=== PATIENT | male | born 1935 | race Caucasian/White ===

== ENCOUNTER 2017-04-03 02:11 | Observation (INO) | payer MEDICARE, OTHER ==
[2017-04-03] VITALS (14 sets, daily range): BP systolic 103–178; BP diastolic 46–86; PULSE 54–81; RESP 14–20; O2SAT 93–99
[~2017-04-03] VITALS: Ht 172.7 cm; Wt 105.2 kg
[~2017-04-03 02:11] MED LIST: LEVO112T3 PO; MECL-114 PO; PENI500T PO
--- NOTE | 2017-04-03 02:29 | ED.REPORT ---
HPI-GI Bleed Date of Service Apr 03, 2017 ED Provider: Dr. Coy 81 y/o male on Aspirin and with a hx of hypothyroidism presents to the ED complaining of melena, onset 4 days ago. Associated sx include epigastric pain and several vomiting episodes 4 days ago. He has not vomited since. He denies alcohol use, dysuria and hematemesis. The pt takes Aleve everyday for arthritic pain.. Nursing Notes Stated Complaint: BLACK STOOL Chief Complaint: Male Abdominal Pain Nursing Notes Reviewed: Yes Allergies: Coded Allergies: No Known Allergies (Unverified Allergy, Unknown, 04/03/17) Scheduled Levothyroxine (Synthroid) 112 Mcg Tablet 112 MCG PO DAILY General Time Seen by Provider: 03:00 Chief Complaint Chief Complaint: Other (Melena) Hx Obtained From: Patient Arrived By: Walk-in Onset Occurred: 4 days ago Symptom Duration: Since onset Progression Since Onset: Unchanged Location: : Epigastric Quality: Painful Radiation: : Does not radiate Severity: Current: Mild Severity: Maximum: Mild Recent Healthcare: No recent doctor visit Similar Sx Previous: No Past Medical History Past Medical History Notes: PCP: Dr. Montero Past Medical History Hypothyroid Past Surgical History ankle replacement Biceps tendon jaw surgery dental extraction Reports: Appendectomy Smoking History Never Smoker Social History Alcohol Use: "Social" Other Social History: Ambulatory Status Independent Review of Systems GI: Reports: Abdominal pain, Melena, Vomiting (now resolved), Denies: Hematemesis Complete sys rev & neg: except as marked. Male: Denies Dysuria Physical Exam Initial Vital Signs Vital Signs (First) Date Time Temp Pulse Resp B/P Pulse Ox O2 Delivery O2 Flow Rate FiO2 04/03/17 02:18 36.9 81 20 178/69 96 Room Air Initial VS: Reviewed Head / Eyes: Atraumatic, Normocephalic Neck: Supple, Non-tender, Full range of motion Extremities: Vascular intact, Neuro intact, No swelling, No tenderness Skin: Warm, Dry, No cyanosis Neurologic: Alert, Oriented, Nonfocal General/Constitutional: Awake, Alert, No acute distress, Cooperative Respiratory / Chest: Atraumatic, Breath sounds NL, Breath sounds = bilat, No respiratory distress, No rales, No rhonchi, No wheezing Cardiovascular: Heart rate NL, Regular rhythm, Heart sounds NL, No gallop, No murmurs, No rubs Abdomen: Atraumatic, Soft, Non-tender, No guarding, No rebound Interpretation & Diagnostics Lab Results Interpretation Result Diagram: 04/03/17 0240 04/03/17 0240 Test 04/03/17 02:40 White Blood Count 7.8th/mm3 (3.8-10.1) Red Blood Count 4.79mil/mm3 (4.40-5.80) Hemoglobin 15.0g/dL (13.8-17.2) Hematocrit 43.9% (41.0-50.0) Mean Corpuscular Volume 91.6fL (81-100) Mean Corpuscular Hemoglobin 31.3pg (27.0-35.0) Mean Corpuscular Hemoglobin Concent 34.2% (32.0-37.0) Red Cell Distribution Width 13.1% (12.3-15.4) Platelet Count 203bil/L (150-400) Neutrophils (%) (Auto) 59.2% (40-74) Lymphocytes (%) (Auto) 27.2% (14-46) Monocytes (%) (Auto) 12.3% (4-12) Eosinophils (%) (Auto) 0.9% (0-5) Basophils (%) (Auto) 0.3% (0-3) Prothrombin Time 10.0sec (8.1-12.5) Prothromb Time International Ratio 0.94ratio Activated Partial Thromboplast Time 28.1sec (22.8-33.0) Sodium Level 137mEq/L (134-144) Potassium Level 4.0mEq/L (3.5-5.2) Chloride Level 101mEq/L (97-108) Carbon Dioxide Level 22mmol/L (18-29) Blood Urea Nitrogen 21mg/dL (8-27) Creatinine 0.93mg/dL (0.76-1.27) Estimat Glomerular Filtration Rate 83mL/min (>59) Glucose Level 102mg/dL (60-99) Calcium Level 8.1mg/dL (8.5-10.1) Magnesium Level 2.2mg/dL (1.6-2.6) Total Bilirubin 0.3mg/dL (0.0-1.2) Aspartate Amino Transf (AST/SGOT) 21U/L (0-50) Alanine Aminotransferase (ALT/SGPT) 17U/L (0-44) Alkaline Phosphatase 74U/L (25-160) Total Protein 6.7g/dL (6.4-8.4) Albumin 3.5g/dL (3.4-5.0) Lipase 25U/L (13-60) Hold Islas Top Tube Received (Received) Re-Eval/Medical Decision Med Decision/Clinical Course 81-year-old with a several day prodrome of upper GI discomfort, presents now with melanotic stool. Hemoglobin is adequate. Coags are negative. Begun with Protonix and admitted now for GI evaluation. Re-Evaluation/Progress : Time of Eval: 03:04 Re-Evaluation/Progress Note: Discussed lab results, diagnosis and plan to admit. Pt understands and agrees with the plan for admission. All questions addressed. Consultation : Referral / Consult Name: Carmelo Kelly MD Consulted With: Hospitalist Call Returned at: 03:38 Candle Molder Machine: Will see patient, Agrees with eval, Agrees with plan, Accepts admit Counseled Regarding: Diagnosis, Lab results, Need for admission Discharge & Departure Impression: Primary Impression: Upper gastrointestinal bleed Additional Impression: Melena Disposition: ADMITTED TO HOSPITAL Discharge Condition All VS Reviewed: Yes Referrals: Linnea Carias MD (PCP) Scribe Attestation Portions of this note were transcribed by Kp Mccarthy. I,, personally performed the history, physical exam and medical decision-making;I reviewed and confirmed the accuracy of the information in the transcribed note. Signed by Balaji Mohan. 04/03/17 copies to: Linnea Carias MD, Christopher W MD Apr 03, 2017 02:29 Kp Mccarthy Apr 03, 2017 03:07
[2017-04-03 02:53] LABS: BASOPHILS % (AUTO) 0.3 % (0-3); EOSINOPHILS % (AUTO) 0.9 % (0-5); MONOCYTES % (AUTO) 12.3 % (4-12); Mean Corpuscular Hemoglobin 31.3 pg (27.0-35.0); Mean Corpuscular Volume 91.6 fL (81-100); NEUTROPHILS % (AUTO) 59.2 % (40-74); Platelet Count 203 bil/L (150-400)
[2017-04-03 03:05] LABS: INR 0.94 ratio
[2017-04-03 03:14] LABS: Magnesium 2.2 mg/dL (1.6-2.6)
[2017-04-03] MEDS ORDERED: Pantoprazole 4 mg/mL 10 mL Inj IVPUSH ONE (04:05)
[2017-04-03] MEDS ORDERED: Polyethylene Glycol (PEG) 17 Gm Powder PO PRN (04:05)
[2017-04-03] MEDS ORDERED: Alum-Mag Hydrox-Simeth 30 mL Suspension PO PRN (04:05)
[2017-04-03] MEDS ORDERED: 0.9% Sodium Chloride 1,000 ML IV SCH (04:05)
[2017-04-03] MEDS ORDERED: Ondansetron 2 mg/mL 2 mL Inj IVPUSH PRN (04:05)
--- NOTE | 2017-04-03 04:16 | PCM.HPMED ---
Subjective Date of Service Apr 03, 2017 Primary Provider: Admitting Physician: Primary Care Physician: Radha Verdugo MD Attending Physician: Chief Complaint: Maroon stools History of Present Illness: Nabor Kennedy is a 81 year old man with past medical history significant for hypothyroidism who presented to the [facility] emergency department today due to complaints of melena which started yesterday. Patient denies any prior episodes of gastrointestinal bleeding. Patient denies any hematochezia, hematemesis. He denies any fevers or chills. He did notice nausea and has had several episodes of vomiting one of which was projectile. He denies any coffee- ground emesis. He also notes some mild intermittent epigastric abdominal pain that feels like a "cramp" and his has noticed an increased abdominal girth and states that he appears bloated. Patient has been taking Aleve routinely due to his prosthetic ankle and chronic ankle pain. Over the last couple days he is taken about 4 pills per day. Patient also takes aspirin daily. Patient has had prior colonoscopies for screening purposes which she reports showed only polyps. He has never had an EGD. In the emergency department the patient's vital signs were stable. The on-call business area manager was consulted by the emergency physician and has kindly agreed to see the patient the morning for possible EGD. Review of Systems: A comprehensive review of systems was conducted with the patient and found to be negative except as above in the History of Present Illness. Allergies Coded Allergies: No Known Allergies (Unverified Allergy, Unknown, 04/03/17) Home Medications Levothyroxine (Synthroid) 112 Mcg Tablet 112 MCG PO DAILY Aspirin 81 mg daily PMH Hypothyroidism Chronic vertigo Surgical History Ankle replacement Jaw surgery Dental extraction Appendectomy Family History She denies any family history of gastrointestinal bleeding, colon cancer, esophageal cancer. Social History Hx Alcohol Use: Yes (socially) Hx Substance Use: No Hx Tobacco Use: No Smoking Status: Never Smoker Exam Vital Signs Vital Sign - Last Date Time Temp Pulse Resp B/P Pulse Ox O2 Delivery O2 Flow Rate FiO2 04/03/17 02:18 36.9 81 20 178/69 96 Room Air Exam General: No acute distress, obese man sitting comfortably in hospital bed appropriately interactive HEENT: Normocephalic, atraumatic. External ears without defect. Pupils equal, round, and reactive to light and accommodation. Anicteric sclerae, moist conjunctivae, and no lid lag. Oropharynx free of erythema and cobble stoning with moist mucosa. Neck: Supple with full range of motion. No jugular venous distension. No lymphadenopathy or thyromegaly. Cardiovascular: Regular rate and rhythm with no murmurs, rubs, or gallops appreciated. Heart sounds are distant due to body habitus. Pulmonary: Clear to auscultation bilaterally with no crackles, wheezes, or rhonchi. Normal respiratory effort with no use of accessory muscles. Abdomen: Bowel tones present. Soft, nontender, obese, tympanic on percussion. Appears mildly distended. No hepatosplenomegaly or masses appreciated. Extremities: No clubbing, cyanosis, edema, or lymphadenopathy appreciated. Surgical scars on the left ankle. Skin: Normal temperature, turgor, and texture; no rash, ulcers, or subcutaneous nodules appreciated. Neurological: Cranial nerves grossly intact. Normal muscle strength, tone, and bulk. No speech. No known gait impairment. Psychiatric: Normal mood and affect. Alert and oriented to person, place, and time. Lab and Diagnostics Result Diagram: 04/03/1723904/03/17239 Assessment & Plan Nabor Kennedy is a 81 year old man with past medical history significant for hypothyroidism who presented to the [facility] emergency department today due to complaints of melena which started yesterday. Acute Gastrointestinal bleed likely upper, present on admission, active -Likely secondary to NSAID use and aspirin use however differential includes H. pylori -Patient will be nothing by mouth -H&H is stable we will continue to monitor and transfuse if hemoglobin is less than 7 -Gastroenterology has been consulted and has kindly agreed to see the patient. We appreciate their time and expertise. -As patient appears to be stable we will give twice a day pushes of Protonix rather than a drip at this time. Hypothyroidism, present on admission, active -Continue levothyroxine after patient is a longer nothing by mouth Obesity Elevated blood pressure -Uncertain if this is hypertension or simply due to stress and anxiety. Continue to monitor. Code Status: Full code Patient is admitted under inpatient status with expected length of stay greater than 2 midnights due to severity of presenting symptoms, risk of adverse event, and complexity of treatment plan. VTE Prophylaxis Indicated: Contraindicated Resuscitation Status: CPR: Attempt Resuscitation Attending Statement The patient was seen and examined together with Dr. Mccormack on 04/03 and I agree with the history, exam and plan as outlined in the note above. Maranda Mccormack DO Apr 03, 2017 03:42 Carmelo Kelly MD Apr 03, 2017 19:20
[2017-04-03 06:40] LABS: BASOPHILS % (AUTO) 0.1 % (0-3); EOSINOPHILS % (AUTO) 1.3 % (0-5); MONOCYTES % (AUTO) 13.7 % (4-12); Mean Corpuscular Hemoglobin 31.3 pg (27.0-35.0); NEUTROPHILS % (AUTO) 62.2 % (40-74); Platelet Count 192 bil/L (150-400)
[2017-04-03] MEDS ORDERED: Propofol 10,000 mCg/mL 20 mL Inj ONE (08:04)
[2017-04-03] MEDS ORDERED: Levothyroxine 100 mCg/5 mL Inj IV ONE (08:30)
[2017-04-03] MEDS ORDERED: SAW/1TAB2 PO (08:59)
--- NOTE | 2017-04-03 09:40 | PCM.CHPMED ---
Subjective Date of Service: Apr 03, 2017 Provider requesting consult: Maranda Mccormack DO Primary Physician: Admitting Physician: Carmelo Kelly MD Primary Care Physician: Radha Verdugo MD Attending Physician: Blake Callejas MD Chief Complaint: Chief Complaint: Black stool History of Present Illness: GASTROENTEROLOGY CONSULT NOTE Nabor Conley is a 81-year-old male with past medical history fairly unremarkable including only hypothyroidism who presents scheduled [facility] emergency Department overnight due to complaints of black stool that started Sunday night, 04/02/2017. Prior to this episode of black stool heis nausea and decreased appetite starting on Sunday. He attributed this to being out in the sun and doing physical labor and thought he might have some degree of heat exhaustion. The next morning, Sunday, he proceeded to do additional yardwork and felt unwell most the day. Again with nausea and later in the afternoon a single episode of projectile vomiting with no blood. Due to these symptoms he relaxed most of Sunday and had no subsequent episodes of vomiting although he did feel nauseous, decreased appetite, and began to have a gnawing pain in his epigastric region. The pain did not radiate and was not associated with shortness of breath, chest pain, or palpitations. Pain may have improved slightly with cream of wheat but patient is unclear. Sunday he attended a family outing and upon returning late in the evening he had an episode of black stool. He denies any hematochezia, diarrhea, or change in caliber of stool. At this point he attempted to go back to sleep but was worried because he had heard that dark stool could be a sign of cancer which precipitated his presentation to the ED. The patient has taken Aleve in the past. 10 years ago he took 2 tablets of Aleve daily for approximately 15 years. Over the last 10 years though he has only used it intermittently for his left shoulder pain and occasional aches and pain. Amounting to less than 4 uses per month. Only other recent medication change is that the patient has started taking saw palmetto to see if this may provide some relief to his frequent urination during the night. Patient does take a daily baby aspirin per his family doctor. Patient denies any recent fever, chills, night sweats, weight loss, previous episodes of melena or hematochezia, or other changes in bowel habits. He is up-to-date on his screening colonoscopies but never has had an EGD completed. Patient does note that he is a generally anxious person although there has been a significant recent increase in stressors. Patient has an occasional beer socially but not on a daily basis or to any excess. Review of Systems: Comprehensive review of systems was conducted with the patient and found to be negative except as noted above in HPI. PMH Past Medical History Hypothyroidism Surgical History Appendectomy Ankle replacement Jaw surgery Home Medications Levothyroxin Saw palmetto Allergies: Coded Allergies: No Known Allergies (Unverified Allergy, Unknown, 04/03/17) Family History Family History No family history of colon cancer, IBD, or celiac disease. Social History Hx Alcohol Use: Yes (Social drinking, infrequent)Hx Substance Use: NoHx Tobacco Use: No Smoking Status: Never Smoker Living Arrangement: with Family Exam Vital Signs Vital Sign - Last Date Time Temp Pulse Resp B/P Pulse Ox O2 Delivery O2 Flow Rate FiO2 04/03/17 08:34 36.6 67 18 159/86 96 Room Air General: Alert, Oriented X3, No Acute Distress Head: Normal Eyes: PERRLA, Scleral Anicteric Mouth: Mouth Normal, Mucous Membr Moist/[place] Neck: Supple Chest & Lungs: Auscultation (normal), No adventitious breath sounds Cardiovascular: Regular Rate/Rhythm, No Murmurs/Rubs/Gallops Pulses: Radial, Dorsalis Pedis, Post Tibial Abdomen: Non-tender, Non-distended Musculoskeletal: Normal Range of Motion Extremities: Warm, No Edema, Other (left ankle well-healed surgical incision from replacement) Neurological: Grossly Neurologically Intact, Cranial Nerves 2-12 Intact Lab and Diagnostics Result Diagram: 04/03/17 0605 04/03/17 0240 Assessment & Plan Assessment Nabor Conley is a 81-year-old male with past medical history fairly unremarkable including only hypothyroidism who presents scheduled [facility] emergency Department overnight due to complaints of black stool that started Sunday night, 04/02/2017. Patient has no history of colon cancer, peptic ulcer disease, or H. pylori. Patient had previously taken significant amount Aleve but has not past 10 years - apart from each evening over the last week. Symptoms appear to be somewhat consistent with peptic ulcer and he has noted improvement on pantoprazole. Recommendations: - EGD planned for this morning. Biopsies will be taken. - Continue pantoprazole twice a day at this time. - Advised the patient to avoid NSAIDs at this time. - H&H stable. Continue to monitor. - Further treatment recommendations pending EGD results. Thank you for involving us in this patient's care. We will continue to follow. Problems: Pain Evaluation: Adequate Pain Control VTE Prophylaxis Indicated: Contraindicated Resuscitation Status: CPR: Attempt Resuscitation Attending Statement Patient seen and examined. Agree with assessment and plan as described by Dr Rocha. In the context of dark stool, recent NSAID use and epigastric pain, hemorrhagic PUD is definitely high in the differential. However, patient did take Pepto last sunday so I'm actually a little skeptical as to whether there has actually been any element of GI bleed. EGD was discussed with patient who consented. Please see the procedure note for further details. COLETTE ROCHA DO Apr 03, 2017 09:40 Weston Reed MD Apr 03, 2017 15:43
[2017-04-03 09:44] LABS: COLOR,URINE YELLOW (YELLOW)
[2017-04-03 09:45] LABS: APPEARANCE,URINE CLEAR (CLEAR,HAZY); OCCULT BLOOD,URINE NEGATIVE (NEGATIVE); PH,URINE 5.5 (5.0-8.0); UROBILINOGEN,URINE NORMAL (NORMAL)
--- NOTE | 2017-04-03 10:29 | PCM.HPANE ---
Patient Data Date of Service: Apr 03, 2017 (1022) Surgeon Admitting Provider:Carmelo Kelly MD Attending Provider:Blake Callejas MD Primary Care Physician:Radha Verdugo MD Other Provider: Reason for Visit Ugi Bleed Ht/WT & BMI Height (Feet): 5 Height (Inches): 8.00 Weight (Kilograms): 105.200 Body Mass Index 35.00 Allergies Coded Allergies: No Known Allergies (Unverified Allergy, Unknown, 04/03/17) Past Anesthesia History Anesthesia History: Denies:: Abnormal Airway, Anesthesia Reactions, Difficult Intubation, Fam Anesthesia Reaction, Fam Malignant Hypertherm, Malignant Hyperthermia Diabetes History Hx Diabetes?: No MRSA MRSA: No Medications Home Meds Incl Beta Mila: No Active Scripts Levothyroxine (Synthroid)112 Mcg [id number] Mcg PO DAILY #30 TABLET Ref 0 Prov:Connie Genao MD 12/12/15 Reported Medications Saw/Vit E/Sod Cecelia/Lyc/Beta/Pyg (Prostate Health Caplet)1 Each Tablet2 Each PO BID 04/03/17 Discontinued Reported Medications Penicillin V Potassium 500 Mg [id number] Mg PO DAILY Ref 0 12/11/15 Discontinued Scripts Meclizine (Bonine)25 Mg Tab.chew25 Mg PO TID DIZZINESS #30 TABLET Prov:Connie Genao MD 12/12/15 History History of ENT Problems?: No HEENT History: Denies:: Abnormal Airway Cataracts Difficult Intubation Dysphagia Glaucoma Hearing Problem Sinus Problem Denture Type: None Teeth Condition: Within Normal Limits Hx of Heart Problems?: No Cardiovascular History: Positive for:: Hypertension Denies:: AICD Cardiac Surgery Chest Pain Congestive Heart Failure Edema Heart Murmur Irregular Heartbeat Pacemaker Thrombophlebitis Valvular Heart Disease Other Cardiac History: Bradycardia Hx of Respiratory Problem?: No Respiratory History: Denies:: Asthma COPD Chest Surgery Dyspnea Emphysema Hemoptysis Pneumonia Tuberculosis Hx Neurologic Problems?: Yes Neurological History: Positive for:: Dizziness (Inner ear, vestibular ) Denies:: Alzheimer's Disease CVA Dementia Headaches Parkinson's Disease Seizures Hx of GI Problems?: Yes Hx of Problems?: Yes Genitourinary History: Positive for:: Kidney Stones ("In my late 20s, early 30s.") Denies:: HX of Hemodialysis Urinary Tract Infection HX of Peritoneal Dialysis: No Male Hx: Denies:: Prostate Problems (Urinary frequency) Scrotal Mass Testicular Surgery Hx Musculoskeletal Problems?: Yes Musculoskeletal History: Positive for:: Joint Replacement (Left ankle replaced , "10 years ago.") Denies:: Back Injury Fibromyalgia Musculoskeletal Trauma Hx of Psycho/Social Problems?: Yes Psycho Social History: Positive for:: Anxiety Denies:: Bipolar Disorder Hx Depression Suicide Attempt Hx Surgeries?: Yes (Appendectomy, Broken jaw, Left ankle) Hx Any Other Health Problems?: Yes Other History: Positive for:: Hospitalization (Bradycardia, Dizziness) Thyroid Disease (Hypothyroid) Denies:: Cancer History Blood Transfusions: Positive for:: Accept Blood Products? Denies:: Blood Transfuse Reaction Blood Transfusions Hx Diabetes: No Hx Alcohol Use: Yes (Social drinking, infrequent)Hx Substance Use: No Smoking Status: Never Smoker Have You Smoked inLast 12 mo: No Stop/Bang Treated for Sleep Apnea?: No Do You Have a CPAP Machine?: No S-Snoring: Do You Snore Loudly: No T-Tired: feel tired, fatigued: No O-Obsered: Observed not breath: No P-Blood Pressure: treated: No B- Body Mass Index > 35 kg/m2: Yes A- Age over 50: Yes N- Neck Large Circumference: Yes G- Gender Male: Yes PAMELA Total Score: 4 PAMELA Category 2: Yes Risk Assessment Category Category 1A: Patient has history of documented sleep apnea, and HAS NOT received any narcotic, sedative or anesthesia administration during this stay. Category 1B: Patient has history of documented sleep apnea, and HAS received any narcotic , sedative or anesthesia administration during this stay Category 2: Patient has SUSPECTED Obstructive Sleep Apnea, and HAS received any narcotic , sedative or anesthesia administration during this stay. Category 3: Patient has SUSPECTED Obstructive Sleep Apnea and HAS NOT received narcotic, sedative or anesthesia administration during this stay. Category 4: Outpatient in Procedural Areas with known sleep apnea or who screen positive for High Risk via the STOP/BANG questionnaire. Exam Exam Vital Signs Vital Signs Date Time Temp Pulse Resp B/P Pulse Ox O2 Delivery O2 Flow Rate FiO2 04/03/17 09:42 36.8 65 14 160/73 99 Room Air 04/03/17 08:34 36.6 67 18 159/86 96 Room Air 04/03/17 04:57 75 04/03/17 04:41 70 16 158/76 95 Room Air 04/03/17 04:27 36.6 64 18 137/67 93 Room Air 04/03/17 03:53 70 17 134/63 94 Room Air General Appearance: Alert, Oriented X3, No Acute Distress HEENT/AIRWAY: MP 2 Lungs: Clear to Auscultation Heart: Exam Unremarkable Meds/Labs/Diagnostics Admission Meds Current Medications Sodium Chloride (Normal Saline) 1,000 ml @ 100 mls/hr Q10H IV Last administered on 04/03/17 04:59; Start 04/03/17 at 04:05 Pantoprazole (Protonix Inj) 40 mg ONCE ONCE IVPUSH Last administered on 04:59; Start 04/03/17 at 04:05; Stop 04/03/17 at 04:13; Status DC Labs Test 04/03/17 02:40 04/03/17 06:05 04/03/17 07:29 Prothrombin Time 10.0sec (8.1-12.5) Prothromb Time International Ratio 0.94ratio Activated Partial Thromboplast Time 28.1sec (22.8-33.0) Sodium Level 137mEq/L (134-144) Potassium Level 4.0mEq/L (3.5-5.2) Chloride Level 101mEq/L (97-108) Carbon Dioxide Level 22mmol/L (18-29) Blood Urea Nitrogen 21mg/dL (8-27) Creatinine 0.93mg/dL (0.76-1.27) Estimat Glomerular Filtration Rate 83mL/min (>59) Glucose Level 102mg/dL (60-99) Calcium Level 8.1mg/dL (8.5-10.1) Magnesium Level 2.2mg/dL (1.6-2.6) Total Bilirubin 0.3mg/dL (0.0-1.2) Aspartate Amino Transf (AST/SGOT) 21U/L (0-50) Alanine Aminotransferase (ALT/SGPT) 17U/L (0-44) Alkaline Phosphatase 74U/L (25-160) Total Protein 6.7g/dL (6.4-8.4) Albumin 3.5g/dL (3.4-5.0) Lipase 25U/L (13-60) Hold Islas Top Tube Received (Received) White Blood Count 6.7th/mm3 (3.8-10.1) Red Blood Count 4.51mil/mm3 (4.40-5.80) Hemoglobin 14.1g/dL (13.8-17.2) Hematocrit 41.5% (41.0-50.0) Mean Corpuscular Volume 92.0fL (81-100) Mean Corpuscular Hemoglobin 31.3pg (27.0-35.0) Mean Corpuscular Hemoglobin Concent 34.0% (32.0-37.0) Red Cell Distribution Width 13.1% (12.3-15.4) Platelet Count 192bil/L (150-400) Neutrophils (%) (Auto) 62.2% (40-74) Lymphocytes (%) (Auto) 22.4% (14-46) Monocytes (%) (Auto) 13.7% (4-12) Eosinophils (%) (Auto) 1.3% (0-5) Basophils (%) (Auto) 0.1% (0-3) Urine Color Yellow (YELLOW) Urine Appearance Clear (CLEAR,HAZY) Urine pH 5.5 (5.0-8.0) Urine Specific [place] 1.020 (1.003-1.035) Urine Protein Negativemg/dL (NEG,TRACE) Urine Glucose (UA) Negativemg/dL (NEGATIVE) Urine Ketones Tracemg/dL (NEGATIVE) Urine Occult Blood Negative (NEGATIVE) Urine Nitrite Negative (NEGATIVE) Urine Bilirubin Negative (NEGATIVE) Urine Urobilinogen Normalmg/dL (NORMAL) Urine Leukocyte Esterase Negative (NEGATIVE) Urine RBC 0-2/hpf (0-2) Urine WBC 0-5/hpf (0-5) Urine Epithelial Cells Occasional/hpf (NONE-MOD) Urine Crystals None seen (NONE SEEN) Urine Bacteria None/hpf (NONE-FEW) Urine Hyaline Casts Occasional/lpf (NONE) Urine Granular Casts None seen (NONE SEEN) Urine Waxy Casts None seen (NONE SEEN) Urine Red Blood Cell Casts None seen (NONE SEEN) Urine White Blood Cell Casts None seen (NONE SEEN) Urine Mucus Present (None Seen) Urine Trichomonas None seen (NONE SEEN) Urine Yeast None (NONE SEEN) Urinalysis Comment None Urine Culture Reflexed Not indicated Plan Impression Patient chart reviewed, patient interviewed and anesthestic plan with risks, benefits, and alternatives discussed, and informed consent obtained. ASA Physical Status: ASA2 Mod Systemic Disease Anesthetic Plan: MAC Bene/Risks/Altern/Consents: Yes HP Complete Prior to Induction: Yes Espinoza Hernandez MD Apr 03, 2017 10:29
[2017-04-03] MEDS ORDERED: Lactated Ringer's 1,000 ML IV ONE (11:22)
--- NOTE | 2017-04-03 11:55 | ENDO ---
[address] [address] ENDOSCOPY PROCEDURE PATIENT: LISHA BANUELOS : 1935 MR#: [id number] ADMIT: 04/03/2017 JOB ID: [id number] DATE: 04/03/2017 PRIMARY PROVIDER: Radha Verdugo MD PROCEDURE: Esophagogastroduodenoscopy with biopsies. INDICATIONS: A 81-year-old male admitted for symptoms of epigastric pain and dark stool x1. The patient has been on Aleve for the last week at night in an attempt to reduce urinary symptoms. He additionally started some saw palmetto and read that inflammation may be causing the problem with his prostate. This is the rationale he used for restarting the Aleve. About four days ago he started to experience some dyspepsia and actually took some Pepto-Bismol. In the ED he did not have an anemia and his vital signs have remained acceptably stable. EGD is pursued for further diagnostics here. EQUIPMENT: [id number] SEDATION: Monitored anesthesia as provided by Dr. Espinoza Hernandez. COMPLICATIONS: None identified. PROCEDURE INFO: After the risks and benefits were explained, written and verbal informed consent was obtained. The patient was brought into the endoscopy suite and placed into the left lateral decubitus position. Sedation was achieved as above. The scope introduced into the mouth through the bite block, and advanced to the second portion of the duodenum. The scope was slowly withdrawn to carefully examine the mucosa for any defects or lesions. Retroflexed views were accomplished in the stomach. The stomach was decompressed. The scope removed the patient who tolerated the procedure well. FINDINGS: 1. Esophagus: No acute erosive changes. No strictures. No mass lesions. The GEJ was at about 38 cm from the incisors. Small sliding hiatal hernia apparent. 2. Stomach: The patient had a moderate amount of retained food debris and what looked like some chewed Pepto-Bismol tablets. The pylorus was open and patent. I did not see any obvious ulceration within the stomach. There was a small inflammatory nodule in the prepyloric region. This was targeted for biopsy to exclude any underlying neoplasia and to exclude the presence of Helicobacter. Otherwise, retroflexed views of the LES were unremarkable. 3. Duodenum: I did not see any new or old blood anywhere in the duodenum (or stomach for that matter). No obstruction. Throughout the second portion and what I could see well downstream there were scattered obvious erosive features all throughout. This was a little unusual, and I therefore reached out with biopsy forceps to submit a sample for histopathologic review. There was some bile normal calle color seen entering the duodenum from the region of the major papilla. ENDOSCOPIC DIAGNOSES: 1. Erosive duodenopathy. 2. Retained gastric food debris. 3. Inflamed pre-pyloric gastric nodule. 4. Sliding hiatal hernia. RECOMMENDATIONS: 1. Await histopathology. 2. If Helicobacter is found, it will need to be eradicated with standard triple therapy. 3. If there are no signs of any active upper GI bleeding. I suspect the patient's dark stool was probably a consequence of the Pepto-Bismol. 4. Further workup of his symptoms seems quite appropriate in that we did not clearly identify the source at endoscopy. That said, based on the presence of the erosions in the duodenum I would recommend he abstain from the Aleve which he has taken in addition to his daily aspirin. 5. I think it would be quite reasonable to pursue celiac serology. However, it would additionally be appropriate to obtain further abdominal imaging starting with an ultrasound to exclude gallbladder dysfunction. Depending on the findings at ultrasound he may be indicated for HIDA scan imaging.
--- NOTE | 2017-04-03 17:19 | DRSVH ---
PROCEDURE: US ABDOMEN INDICATIONS: melena concern for UGIB no findings on EGD TECHNIQUE: Real-time scanning was performed of the abdominal and retroperitoneal organs, with image documentatio n. COMPARISON: None. FINDINGS: Liver length: 18.83 cm Gallbladder Wall Thickness: 2.30 mm CHD: 3.60 mm CBD: 3.40 mm Spleen length: 10.56 cm Right kidney length: 10.65 cm Left kidney length: 5.27 cm Aorta(Proximal): 2.24 cm, 2.44 cm Aorta(Mid): 1.62 cm Aorta(Distal): 1.72 cm Liver: Liver is diffusely increased in echogenicity. No focal hepatic abnormalities identified. No rmal hepatic size. Gallbladder: No gallstones identified. Normal gallbladder wall. No pericholecystic fluid. Negativ e sonographic Vela sign. Biliary ducts: Intrahepatic bile ducts are non-dilated. Extrahepatic bile duct caliber is normal. Normal is 6-7 mm or less in diameter, or 10 mm or less post-cholecystectomy. Pancreas: Not well-seen. Spleen: Spleen is normal in size and homogeneous in echotexture. Kidneys: Kidneys are normal in size and echotexture. No hydronephrosis or nephrolithiasis. No kevin d masses. Aorta: Visualized aorta is normal in caliber at less than 3 cm. Iliacs: Not well-seen. IVC: Intrahepatic inferior vena cava is patent. Miscellaneous: No free abdominal fluid. IMPRESSION: Increased hepatic echogenicity noted likely related to fatty infiltration of the liver b ut other sources of hepatocellular disease cannot be excluded. Recommend clinical correlation. Dictated by: Kieran Malone A Interpreted: Tatiana Godinez MD on 04/03/2017 at 16:12 Approved by: Tatiana Godinez MD, PhD on 04/03/2017 at 17:17
[2017-04-03] MEDS: Pantoprazole 4 mg/mL 10 mL Inj IVPUSH SCH (17:20)
[2017-04-04 04:30] VITALS: BP 149/74; PULSE 80; RESP 18; O2SAT 96
[2017-04-04 07:26] LABS: BASOPHILS % (AUTO) 0.3 % (0-3); EOSINOPHILS % (AUTO) 1.7 % (0-5); MONOCYTES % (AUTO) 9.4 % (4-12); Mean Corpuscular Hemoglobin 31.3 pg (27.0-35.0); Mean Corpuscular Volume 92.7 fL (81-100); Platelet Count 227 bil/L (150-400)
[2017-04-04] MEDS: Pantoprazole 4 mg/mL 10 mL Inj IVPUSH SCH (08:58)
--- NOTE | 2017-04-04 10:56 | PCM.PNSURG ---
Subjective Date of Service: Apr 04, 2017 Date of Service: Apr 04, 2017 Visit Information: Reason for Visit Ugi Bleed Surgery/Surgery Date Post-Op Day # Date of Admission: Apr 03, 2017 at 03:57 Hospital Day # Subjective: GASTROENTEROLOGY CONSULT NOTE No acute events overnight. Patient without any issue after EGD. Patient slept well. No pain or overt signs of bleeding. Patient feels ready to be discharged. Postop General: No Complaints Objective Vital Sign- Last 8 Hours Date Time Temp Pulse Resp B/P Pulse Ox O2 Delivery O2 Flow Rate FiO2 04/04/17 04:30 36.4 80 18 149/74 96 Room Air Intake and Output- Last 8 Hour 04/04/17 Cumulative From/Thru 07:00 04/03/17 02:18 - 04/04/17 05:41 Intake Total 660 ml 1340 ml Output Total 450 ml Balance 660 ml 890 ml Intake Oral 660 ml 1340 ml Output Urine Total 450 ml # Voids 2 4 # Bowel Movements 1 1 General: Alert, Oriented X3, Cooperative, No Acute Distress Neck: Supple Lungs: Clear to Auscultation Heart: Regular Rate/Rhythm Abdomen: Benign, Soft, Non-tender, Normoactive bowel tones Extremities: Distal Pulses Palpable, Warm Neuro: Cranial Nerves 2-12 nl, Grossly Neurologically Intact Catheters: None Result Diagram: 04/04/17 0600 04/04/17 0600 Assessment & Plan Impression Nabor Conley is a 81-year-old male with past medical history fairly unremarkable including only hypothyroidism who presents scheduled [facility] emergency Department overnight due to complaints of black stool that started Sunday night, 04/02/2017. Patient has no history of colon cancer, peptic ulcer disease, or H. pylori. Patient had previously taken significant amount Aleve but has not in the past 10 years - apart from each evening over the last week. Patient underwent EGD yesterday and tolerated well. EGD did not reveal signs of bleeding and likely the patient's dark stool is secondary to use of Pepto-Bismol. Abdominal US yesterday was also unremarkable. He has no ongoing complaints or any signs of overt bleeding. Recommendations: - EGD revealed no definitive cause of patient's symptoms. Biopsies taken and results pending. - If Helicobacter is found it will need to be eradicated with standard triple therapy. - H&H have remained stable since admission. - EGD did show erosive duodenopathy therefore suggest patient abstain from further NSAID use. - If patient has recurrence of RUQ/Epigastric pain it may be appropriate to order outpatient HIDA scan. We will defer this decision to PCP. From a GI standpoint the patient can be discharged. Thank you for involving us in this patient's care. Problems: Resuscitation Status: CPR: Attempt Resuscitation Attending Statement: No charge note. I did not have a chance to see Mr Kennedy prior to his d/c home. COLETTE ROCHA DO Apr 04, 2017 10:56 Weston Reed MD Apr 04, 2017 22:36 2. If Helicobacter is found, it will need to be eradicated with standard triple therapy. 3. If there are no signs of any active upper GI bleeding. I suspect the patient's dark stool was probably a consequence of the Pepto-Bismol. 4. Further workup of his symptoms seems quite appropriate in that we did not clearly identify the source at endoscopy. That said, based on the presence of the erosions in the duodenum I would recommend he abstain from the Aleve which he has taken in addition to his daily aspirin. 5. I think it would be quite reasonable to pursue celiac serology. However, it would additionally be appropriate to obtain further abdominal imaging starting with an ultrasound to exclude gallbladder dysfunction. Depending on the findings at ultrasound he may be indicated for HIDA scan imaging. Problems: Resuscitation Status: CPR: Attempt Resuscitation COLETTE ROCHA DO Apr 04, 2017 10:56 COLETTE ROCHA DO Apr 04, 2017 10:56
--- NOTE | 2017-04-04 11:51 | PCM.DIMED ---
Discharge Instructions Date of Service Apr 04, 2017 Dates of Hospitalization Apr 03, 2017 at 03:57 Discharge Diagnosis Discharge Diagnosis upper GI Bleed secondary to duodenal erosions Diet Discharge Diet: Heart Healthy Activity Discharge Activity: No restrictions Call your provider Call your provider for: Fever or Chills, Shortness of breath, Bleeding, Chest pain, Vomitting, Excessive diarrhea, Weakness (unilateral) Patient Instructions Follow-up Provider: Radha Verdugo MD Follow-up with PCP in: 1 week (sooner if problems) Regi Garay MD Apr 04, 2017 11:51
[2017-04-04] MEDS ORDERED: PANT40TA2 PO (11:52)
--- NOTE | 2017-04-04 16:55 | PCM.DC.MED ---
Discharge Summary Date of Service Apr 04, 2017 Dates of Hospitalization Date of Hospital Admission Apr 03, 2017 at 03:57 Date of Discharge: Apr 04, 2017 Providers: Admitting Physician: Carmelo Kelly MD Primary Care Physician: Radha Verdugo MD Attending Physician: Blake Callejas MD Diagnosis at Time of Discharge Diagnosis at Time of Discharge upper GI Bleed secondary to duodenal erosions Consultations Gastroenterology Procedures XRay, CTs & MRIs PROCEDURE: US ABDOMEN INDICATIONS: melena concern for UGIB no findings on EGD TECHNIQUE: Real-time scanning was performed of the abdominal and retroperitoneal organs, with image documentation. COMPARISON: None. FINDINGS: Liver length: 18.83 cm Gallbladder Wall Thickness: 2.30 mm CHD: 3.60 mm CBD: 3.40 mm Spleen length: 10.56 cm Right kidney length: 10.65 cm Left kidney length: 5.27 cm Aorta(Proximal): 2.24 cm, 2.44 cm Aorta(Mid): 1.62 cm Aorta(Distal): 1.72 cm Liver: Liver is diffusely increased in echogenicity. No focal hepatic abnormalities identified. Normal hepatic size. Gallbladder: No gallstones identified. Normal gallbladder wall. No pericholecystic fluid. Negative sonographic Vela sign. Biliary ducts: Intrahepatic bile ducts are non-dilated. Extrahepatic bile duct caliber is normal. Normal is 6-7 mm or less in diameter, or 10 mm or less post-cholecystectomy. Pancreas: Not well-seen. Spleen: Spleen is normal in size and homogeneous in echotexture. Kidneys: Kidneys are normal in size and echotexture. No hydronephrosis or nephrolithiasis. No solid masses. Aorta: Visualized aorta is normal in caliber at less than 3 cm. Iliacs: Not well-seen. IVC: Intrahepatic inferior vena cava is patent. Miscellaneous: No free abdominal fluid. IMPRESSION: Increased hepatic echogenicity noted likely related to fatty infiltration of the liver but other sources of hepatocellular disease cannot be excluded. Recommend clinical correlation. Dictated by: Kieran ARCE Interpreted: Tatiana Godinez MD on 04/03/2017 at 16:12 Approved by: Tatiana Godinez MD, PhD on 04/03/2017 at 17:17 Invasive Procedures ENDOSCOPIC DIAGNOSES: 1. Erosive duodenopathy. 2. Retained gastric food debris. 3. Inflamed pre-pyloric gastric nodule. 4. Sliding hiatal hernia. RECOMMENDATIONS: 1. Await histopathology. 2. If Helicobacter is found, it will need to be eradicated with standard triple therapy. 3. If there are no signs of any active upper GI bleeding. I suspect the patient's dark stool was probably a consequence of the Pepto-Bismol. 4. Further workup of his symptoms seems quite appropriate in that we did not clearly identify the source at endoscopy. That said, based on the presence of the erosions in the duodenum I would recommend he abstain from the Aleve which he has taken in addition to his daily aspirin. 5. I think it would be quite reasonable to pursue celiac serology. However, it would additionally be appropriate to obtain further abdominal imaging starting with an ultrasound to exclude gallbladder dysfunction. Depending on the findings at ultrasound he may be indicated for HIDA scan imaging. Brief History GASTROENTEROLOGY CONSULT NOTE Nabor Conley is a 81-year-old male with past medical history fairly unremarkable including only hypothyroidism who presents scheduled [facility] emergency Department overnight due to complaints of black stool that started Sunday night, 04/02/2017. Prior to this episode of black stool heis nausea and decreased appetite starting on Sunday. He attributed this to being out in the sun and doing physical labor and thought he might have some degree of heat exhaustion. The next morning, Sunday, he proceeded to do additional yardwork and felt unwell most the day. Again with nausea and later in the afternoon a single episode of projectile vomiting with no blood. Due to these symptoms he relaxed most of Sunday and had no subsequent episodes of vomiting although he did feel nauseous, decreased appetite, and began to have a gnawing pain in his epigastric region. The pain did not radiate and was not associated with shortness of breath, chest pain, or palpitations. Pain may have improved slightly with cream of wheat but patient is unclear. Sunday he attended a family outing and upon returning late in the evening he had an episode of black stool. He denies any hematochezia, diarrhea, or change in caliber of stool. At this point he attempted to go back to sleep but was worried because he had heard that dark stool could be a sign of cancer which precipitated his presentation to the ED. The patient has taken Aleve in the past. 10 years ago he took 2 tablets of Aleve daily for approximately 15 years. Over the last 10 years though he has only used it intermittently for his left shoulder pain and occasional aches and pain. Amounting to less than 4 uses per month. Only other recent medication change is that the patient has started taking saw palmetto to see if this may provide some relief to his frequent urination during the night. Patient does take a daily baby aspirin per his family doctor. Patient denies any recent fever, chills, night sweats, weight loss, previous episodes of melena or hematochezia, or other changes in bowel habits. He is up-to-date on his screening colonoscopies but never has had an EGD completed. Patient does note that he is a generally anxious person although there has been a significant recent increase in stressors. Patient has an occasional beer socially but not on a daily basis or to any excess. Hospital Course Nabor Kennedy is a 81 year old man with past medical history significant for hypothyroidism who presented to the [facility] emergency department today due to complaints of melena which started yesterday. Acute Gastrointestinal bleed likely upper, present on admission, active -Patient had upper endoscopy done as noted above. Does have duodenal erosions and will be discharged on by mouth tonics twice daily -Patient's hematocrit has been stable and is appropriate for discharge -Recommend taking ASA 81 mg by mouth in the a.m. not before bed and avoiding nonsteroidal anti-inflammatories Hypothyroidism, present on admission, active -Continue levothyroxine after patient is a longer nothing by mouth Obesity Elevated blood pressure -Uncertain if this is hypertension or simply due to stress and anxiety. Continue to monitor. Code Status: Full code Exam Vital Signs (Last) Date Time Temp Pulse Resp B/P Pulse Ox O2 Delivery O2 Flow Rate FiO2 04/04/17 04:30 36.4 80 18 149/74 96 Room Air Exam Constitutional: Elderly male in no acute distress Head: Normocephalic atraumatic Chest: Clear to auscultation Cor: Regular rate and rhythm S1-S2 without murmur Abdomen: Soft nontender bowel sounds present Extremities: No pedal edema Psych: Mood and affect are appropriate Skin: No rashes Neuro: 3, motor strength is intact bilaterally Test 04/03/17 02:40 04/03/17 07:29 04/03/17 12:35 04/04/17 06:00 Prothrombin Time 10.0sec (8.1-12.5) Prothromb Time International Ratio 0.94ratio Activated Partial Thromboplast Time 28.1sec (22.8-33.0) Magnesium Level 2.2mg/dL (1.6-2.6) Lipase 25U/L (13-60) Hold Islas Top Tube Received (Received) Urine Color Yellow (YELLOW) Urine Appearance Clear (CLEAR,HAZY) Urine pH 5.5 (5.0-8.0) Urine Specific [place] 1.020 (1.003-1.035) Urine Protein Negativemg/dL (NEG,TRACE) Urine Glucose (UA) Negativemg/dL (NEGATIVE) Urine Ketones Tracemg/dL (NEGATIVE) Urine Occult Blood Negative (NEGATIVE) Urine Nitrite Negative (NEGATIVE) Urine Bilirubin Negative (NEGATIVE) Urine Urobilinogen Normalmg/dL (NORMAL) Urine Leukocyte Esterase Negative (NEGATIVE) Urine RBC 0-2/hpf (0-2) Urine WBC 0-5/hpf (0-5) Urine Epithelial Cells Occasional/hpf (NONE-MOD) Urine Crystals None seen (NONE SEEN) Urine Bacteria None/hpf (NONE-FEW) Urine Hyaline Casts Occasional/lpf (NONE) Urine Granular Casts None seen (NONE SEEN) Urine Waxy Casts None seen (NONE SEEN) Urine Red Blood Cell Casts None seen (NONE SEEN) Urine White Blood Cell Casts None seen (NONE SEEN) Urine Mucus Present (None Seen) Urine Trichomonas None seen (NONE SEEN) Urine Yeast None (NONE SEEN) Urinalysis Comment None Urine Culture Reflexed Not indicated White Blood Count 6.4th/mm3 (3.8-10.1) Red Blood Count 4.79mil/mm3 (4.40-5.80) Hemoglobin 15.0g/dL (13.8-17.2) Hematocrit 44.4% (41.0-50.0) Mean Corpuscular Volume 92.7fL (81-100) Mean Corpuscular Hemoglobin 31.3pg (27.0-35.0) Mean Corpuscular Hemoglobin Concent 33.8% (32.0-37.0) Red Cell Distribution Width 13.2% (12.3-15.4) Platelet Count 227bil/L (150-400) Neutrophils (%) (Auto) 61.0% (40-74) Lymphocytes (%) (Auto) 27.4% (14-46) Monocytes (%) (Auto) 9.4% (4-12) Eosinophils (%) (Auto) 1.7% (0-5) Basophils (%) (Auto) 0.3% (0-3) Sodium Level 142mEq/L (134-144) Potassium Level 4.2mEq/L (3.5-5.2) Chloride Level 106mEq/L (97-108) Carbon Dioxide Level 24mmol/L (18-29) Blood Urea Nitrogen 14mg/dL (8-27) Creatinine 1.02mg/dL (0.76-1.27) Estimat Glomerular Filtration Rate 75mL/min (>59) Glucose Level 112mg/dL (60-99) Calcium Level 8.5mg/dL (8.5-10.1) Total Bilirubin 0.4mg/dL (0.0-1.2) Aspartate Amino Transf (AST/SGOT) 20U/L (0-50) Alanine Aminotransferase (ALT/SGPT) 16U/L (0-44) Alkaline Phosphatase 76U/L (25-160) Total Protein 6.4g/dL (6.4-8.4) Albumin 3.8g/dL (3.4-5.0) Discharge Medications Discharge Medications Levothyroxine (Synthroid) 112 Mcg Tablet 112 MCG PO DAILY Prescribed by: ISHAN NARAYANAN MD Pantoprazole DR (Protonix) 40 Mg Tablet 40 MG PO BID Prescribed by: REGI GARAY MD Saw/Vit E/Sod Cecelia/Lyc/Beta/Pyg (Prostate Health Caplet) 1 Each Tablet 2 EACH PO BID (Reported) Followup Plan Disposition: Home Discharge Diet: Heart Healthy Discharge Activity: No restrictions Follow-up Provider: Radha Verdugo MD Follow-up with PCP in: 1 week (sooner if problems) Time spent 60 minutes Regi Garay MD Apr 04, 2017 16:55
--- NOTE | 2017-04-04 17:26 | PATH ---
SURGICAL PATHOLOGY Attending Physician:Justin Bird CASE STATUS: Signed Out PATIENT NAME: LISHA BANUELOS PID: [id number] : 1935 DATE COLLECTED:04/03/2017 17:23 SPECIMEN: 1: Duodenum, Biopsy 2: Gastric, Biopsy CLINICAL HISTORY: 1). DUODENAL BIOPSY 2). GASTRIC BIOPSY (RULE OUT H.PYLORI) FINAL DIAGNOSIS: 1.DUODENUM, BIOPSY: DUODENAL MUCOSA WITH PARTIALLY BLUNTED VILLI. Negative for active inflammation, dysplasia, and malignancy. No definite features of sprue are identified. 2.GASTRIC BIOPSY: SCANT PORTIONS OF GASTRIC ANTRAL MUCOSA WITH MILD CHRONIC GASTRITIS. NO H. PYLORI ORGANISMS IDENTIFIED BY H&E STAIN. Immunohistochemistry studies pending; results will be reported as an addendum. Negative for intestinal metaplasia, dysplasia and malignancy. ICD10 K29.7 GROSS DESCRIPTION: The specimen is received in two formalin filled containers labeled with the patient's name. 1). The specimen is labeled "duodenal" and consists of a 0.1 x 0.1 x 0.1 CM portion of tissue which is entirely submitted in cassette 1A. 2). The specimen is labeled "gastric" and consists of a less than 0.1 CM portion of tissue which is entirely submitted in cassettes 2A. 04/03/2017DC MICRO DESCRIPTION: See diagnosis. ICD-9 CODES: CPT CODES: 1: 50353 2: 49882, 23473 PROCEDURE/ADDENDA: Addendum SPI Addendum Diagnosis 2. GASTRIC BIOPSY: Negative for H. pylori organisms by immunohistochemistry studies. Immunohistochemical stains are performed to further evaluate for the presence of Helicobacter organisms. The patient tissue is stained with monoclonal antibody to Helicobacter pylori (SP48). Positive and negative controls stain appropriately. Result: The patient tissue shows no staining. Interpretation: The gastric mucosa is negative for Helicobacter pylori by immunohistochemical stains. * This test was developed and its performance characteristics determined by [employer]. It has not been cleared or approved by the U.S. Food and Drug Administration. The FDA has determined that such clearance or approval is not necessary. This test is used for clinical purposes. It should not be regarded as investigational or for research. Addendum Comment {Not Entered} Electronically Signed Out Jyoti York MD Electronically Signed Out Jyoti York MD [facility] [address], [place] [address] Technical component performed at [facility], [address], [place], [address]
== END 2017-04-04 13:15 | disposition home or self-care (01) ==
LOC: SED 02:11 → INTOOBSV 03:57 → MPC 03:57
PROVIDERS: ADMIT Hospitalist; ATTEND Hospitalist
DX: K29.51 Unspecified chronic gastritis with bleeding (principal); K44.9 Diaphragmatic hernia without obstruction or gangrene; K26.9 Duodenal ulcer, unspecified as acute or chronic, without hemorrhage or perforation; K92.1 Melena; E03.9 Hypothyroidism, unspecified; R03.0 Elevated blood-pressure reading, without diagnosis of hypertension; F41.9 Anxiety disorder, unspecified; Z79.82 Long term (current) use of aspirin; Z79.1 Long term (current) use of non-steroidal anti-inflammatories (NSAID); Z96.662 Presence of left artificial ankle joint